=== PATIENT | female | born 1990 | race Two or more races ===

== ENCOUNTER 2022-04-27 12:01 | Emergency (ER) | payer BC ==
[~2022-04-27] VITALS: Ht 175.3 cm; Wt 63.5 kg
[2022-04-27 12:09] VITALS: BP 118/80
--- NOTE | 2022-04-27 12:23 | NUR ---
dr fulton at bedside for eval.
--- NOTE | 2022-04-27 12:36 | NUR ---
covid/ influenza swab collected. lab called for picker/puller.
[2022-04-27] MEDS ORDERED: BENZ-13 PO (13:44)
--- NOTE | 2022-04-27 13:57 | NUR ---
Patient discharged to home in stable condition. Written and verbal after care instructions given. Patient verbalizes understanding of instruction.
== END 2022-04-27 13:57 | disposition home or self-care (01) ==
LOC: ER 12:09
DX: R05.9 Cough, unspecified (principal); R68.89 Other general symptoms and signs; Z20.822 Contact with and (suspected) exposure to COVID-19
CPT/HCPCS: 99284; 71045; 87426; 87804; C9803